=== PATIENT | female | born 1995 | race Caucasian/White ===

== ENCOUNTER 2018-11-24 13:23 | Inpatient (IN) | payer BC ==
[~2018-11-24] VITALS: Ht 162.6 cm; Wt 88.0 kg
[2018-11-24] MEDS ORDERED: LR 1,000 ML IV SCH (13:37)
[2018-11-24 14:38] LABS: CALCIUM 8.4 mg/dL (8.4-11.0); CREATININE 0.71 mg/dL (0.55-1.30)
[2018-11-24 14:43] LABS: ALBUMIN 2.2 g/dL (3.4-4.8); TOTAL BILIRUBIN 0.3 mg/dL (0.0-1.0)
[2018-11-24 14:51] LABS: EOSINOPHILS % (AUTO) 1.1 % (0.0-4.0); HEMATOCRIT 30.6 % (36-48); HEMOGLOBIN 10.3 g/dL (12.0-16.0); LYMPHOCYTES % (AUTO) 19.5 % (20.5-51.5); MEAN CORPUSCULAR HEMOGLOBIN 29 pg (27-31); MEAN CORPUSCULAR HGB CONC 34 % (32-36); MEAN CORPUSCULAR VOLUME 85 fL (79.0-98.0); MONOCYTES % (AUTO) 7.4 % (1.7-9.3); NEUTROPHILS % (AUTO) 71.3 % (40.0-70.0); PLATELET COUNT (AUTO) 223 K/uL (130-430); RED BLOOD CELL COUNT(AUTO) 3.59 MIL/uL (4.2-6.2); RED CELL DISTRIBUTION WIDTH 14.5 % (9.0-15.0); WHITE BLOOD COUNT (AUTO) 9.6 K/uL (4.8-10.8)
[2018-11-24 14:52] LABS: BASOPHILS # (AUTO) 0.1 K/uL (0.0-0.2); BASOPHILS % (AUTO) 0.7 % (0.0-2.0); EOSINOPHILS # (AUTO) 0.1 K/uL (0.0-0.4); LYMPHOCYTES # (AUTO) 1.9 K/uL (1.0-5.5); MONOCYTES # (AUTO) 0.7 K/uL (0.0-1.0); NEUTROPHILS # (AUTO) 6.8 K/uL (1.8-7.7)
[2018-11-24 14:53] LABS: BILIRUBIN,URINE NEGATIVE (NEGATIVE); BLOOD, URINE NEGATIVE (NEGATIVE); CLARITY/URINE CLEAR (CLEAR); COLOR,URINE YELLOW (YELLOW); GLUCOSE,URINE NEGATIVE (NEGATIVE); KETONES,URINE NEGATIVE (NEGATIVE); LEUKOCYTE ESTERASE ,URINE NEGATIVE (NEGATIVE); NITRITE, URINE NEGATIVE (NEGATIVE); PH,URINE 6.5 (5.0-8.0); PROTEIN URINE 3+ (NEGATIVE); UROBILINOGEN,URINE 0.2 (0.2-1.0)
[2018-11-24 15:04] LABS: BACTERIA,URINE FEW /HPF (None Seen); MUCUS,URINE 1+ /LPF (None Seen); RBC,URINE 0-3 /HPF (0-3)
[2018-11-24 15:28] LABS: INR 0.8 (0.8-1.2); PROTHROMBIN TIME < 8.9 SECS (9.5-12.5)
[2018-11-24] MEDS ORDERED: LR 1,000 ML IV ONE (17:16)
[2018-11-24 17:26] VITALS: BP_SYST 131
[2018-11-24] MEDS ORDERED: DINOPROSTONE 10 MG SUPP VG ONE (17:30)
[2018-11-24] MEDS ORDERED: TERBUTALINE SULFATE 1 MG/ML VIAL SUBCUT ONE (17:30)
[2018-11-24] MEDS ORDERED: NALBUPHINE HCL 10 MG/ML AMP IVP PRN (17:30)
[2018-11-24 18:04] LABS: FIBRINOGEN 550 mg/dL (200-400)
[2018-11-24] MEDS ORDERED: LABETALOL HCL 100 MG TABLET PO SCH (21:00)
[2018-11-24] MEDS: LABETALOL 100 MG TABLET PO SCH (21:00)
[2018-11-24] MEDS: LR 1,000 ML IV SCH (21:10)
[2018-11-25] MEDS ORDERED: fentaNYL CITRATE/PF 100 MCG/2 ML AMP ONE (04:53)
[2018-11-25] MEDS ORDERED: ROPIVACAINE 0.2% 100 ML ONE (04:54)
[2018-11-25] MEDS: LR 1,000 ML IV SCH (05:31)
[2018-11-25] MEDS ORDERED: TERBUTALINE SULFATE 1 MG/ML VIAL SUBCUT ONE (07:20)
[2018-11-25] MEDS ORDERED: TERBUTALINE SULFATE 1 MG/ML VIAL ONE (07:28)
[2018-11-25] MEDS ORDERED: LR 500 ML IV ONE (07:48)
[2018-11-25] MEDS ORDERED: FENT2mCg/mL-ROPIVA0.2%/NS EPID 150 ML EP SCH (08:00)
[2018-11-25] MEDS ORDERED: OXYTOCIN/0.9 % SODIUM CHLORIDE 1,000 ML IV ONE ×3 (08:42→23:34)
[2018-11-25] MEDS ORDERED: OXYTOCIN/0.9 % SODIUM CHLORIDE 1,000 ML IV SCH ×2 (09:08→23:34)
[2018-11-25] MEDS ORDERED: MEASLES,MUMPS&RUBELLA VACC/PF 12500 UNIT/0.5 ML VIAL SUBQ PRN ×2 (09:15→23:45)
[2018-11-25] MEDS ORDERED: RHO(D) IMMUNE GLOBULIN/MALTOSE 1500 UNITS/1.3 ML (WINHRO) IM PRN (09:15)
[2018-11-25] MEDS ORDERED: LANOLIN 7 GM OINT. TP PRN (09:15)
[2018-11-25] MEDS ORDERED: HYDROcodone/ACETAMIN 5-325 MG TAB (NORCO/ VICODIN) PO PRN ×2 (09:15→23:45)
[2018-11-25] MEDS ORDERED: DERMOPLAST SPRAY TP PRN ×2 (09:15→23:45)
[2018-11-25] MEDS ORDERED: WITCH HAZEL LEAF 1 MED.PAD MED.PAD TP PRN ×2 (09:15→23:45)
[2018-11-25] MEDS ORDERED: DIPH-TET-PERTUS Vaccine 0.5 ML VIAL (ADACEL) I.M. PRN ×2 (09:15→23:45)
[2018-11-25] MEDS ORDERED: OXYCODONE/ACETAMINOPHEN 5-325 TABLET PO PRN ×4 (09:15→23:45)
[2018-11-25] MEDS ORDERED: ANUSOL 1 EA SUPP.RECT (PREPARATION H) RC PRN ×2 (09:15→23:45)
[2018-11-25] MEDS ORDERED: HYDROCORTISONE 0.5%, 28.35 GM TOPICAL CREAM TP PRN ×2 (09:15→23:45)
[2018-11-25] MEDS ORDERED: SENNOSIDES/DOCUSATE SODIUM 1 TAB TABLET(SENOKOT-S) PO PRN (09:15)
[2018-11-25] MEDS ORDERED: DOCUSATE SODIUM 100 MG CAPSULE PO PRN ×2 (09:15→23:45)
[2018-11-25] MEDS ORDERED: ONDANSETRON HCL 4 MG/2 ML VIAL ONE (11:11)
[2018-11-25] MEDS ORDERED: ONDANSETRON HCL 4 MG/2 ML VIAL IVP PRN (11:15)
[2018-11-25] MEDS ORDERED: DINOPROSTONE 10 MG SUPP VG ONE (15:00)
[2018-11-25] MEDS: IBUPROFEN 600 MG TABLET PO SCH (17:10)
[2018-11-25] MEDS: LABETALOL 100 MG TABLET PO SCH (20:00)
[2018-11-25] MEDS ORDERED: TEMAZEPAM 15 MG CAPSULE PO PRN ×2 (21:00)
[2018-11-26] MEDS ORDERED: IBUPROFEN 600 MG TABLET PO SCH
[2018-11-26] MEDS: IBUPROFEN 600 MG TABLET PO SCH ×4 (00:35→19:01)
[2018-11-26 07:17] LABS: HEMATOCRIT 25.7 % (36-48); HEMOGLOBIN 8.6 g/dL (12.0-16.0); MEAN CORPUSCULAR HEMOGLOBIN 29 pg (27-31); MEAN CORPUSCULAR HGB CONC 34 % (32-36); MEAN CORPUSCULAR VOLUME 86 fL (79.0-98.0); PLATELET COUNT (AUTO) 151 K/uL (130-430); RED BLOOD CELL COUNT(AUTO) 2.97 MIL/uL (4.2-6.2); RED CELL DISTRIBUTION WIDTH 14.9 % (9.0-15.0); WHITE BLOOD COUNT (AUTO) 9.5 K/uL (4.8-10.8)
[2018-11-26 07:18] LABS: BASOPHILS # (AUTO) 0.1 K/uL (0.0-0.2); BASOPHILS % (AUTO) 0.6 % (0.0-2.0); EOSINOPHILS # (AUTO) 0.1 K/uL (0.0-0.4); EOSINOPHILS % (AUTO) 1.4 % (0.0-4.0); LYMPHOCYTES # (AUTO) 2.3 K/uL (1.0-5.5); MONOCYTES # (AUTO) 0.8 K/uL (0.0-1.0); MONOCYTES % (AUTO) 8.7 % (1.7-9.3); NEUTROPHILS # (AUTO) 6.2 K/uL (1.8-7.7); NEUTROPHILS % (AUTO) 65.3 % (40.0-70.0)
[2018-11-27] MEDS: IBUPROFEN 600 MG TABLET PO SCH ×2 (00:10→06:01)
== END 2018-11-27 16:16 | disposition home or self-care (01) | DRG 806 ==
LOC: SPU 13:23
PROVIDERS: ADMIT Specialist; ATTEND Specialist
PROC: 10E0XZZ Delivery of Products of Conception, External Approach (ICD-10-PCS; principal; 2018-11-24)
PROC: 3E0R3BZ Introduction of Anesthetic Agent into Spinal Canal, Percutaneous Approach (ICD-10-PCS; 2018-11-24)
PROC: 00HU33Z Insertion of Infusion Device into Spinal Canal, Percutaneous Approach (ICD-10-PCS; 2018-11-24)
PROC: 3E0P7VZ Introduction of Hormone into Female Reproductive, Via Natural or Artificial Opening (ICD-10-PCS; 2018-11-24)
DX: O60.14X0 Preterm labor third trimester with preterm delivery third trimester, not applicable or unspecified (principal); D62 Acute posthemorrhagic anemia; Z37.0 Single live birth; O11.4 Pre-existing hypertension with pre-eclampsia, complicating childbirth; O69.81X0 Labor and delivery complicated by cord around neck, without compression, not applicable or unspecified; Z3A.37 37 weeks gestation of pregnancy
CPT/HCPCS: 36415; 80053; 81000-TC; 85025; 85379; 85384-TC; 85610-TC; 85730-TC; 86592; 86886; 86900; 86901; 94760; J2300; J2405; J2590; J2795; J3010; J3105; J7120